=== PATIENT | male | born 1980 | race Caucasian/White ===

== ENCOUNTER 2023-01-17 13:19 | Outpatient (CLI) | payer OTHER, SELFPAY | END 2023-01-17 13:20 | disposition home or self-care (01) | PROVIDERS: PCP Family Medicine; Visit Provider Surgery | DX: K42.9 Umbilical hernia without obstruction or gangrene (principal); Z01.818 Encounter for other preprocedural examination | CPT/HCPCS: 36415; 86850; 86900; 86901 ==

== ENCOUNTER 2023-01-18 01:31 | Day surgery (SDC) | payer OTHER, SELFPAY ==
[2023-01-14 14:32] VITALS: BMI 31.0
--- NOTE | 2023-01-14 14:38 | PC.NURSE ---
Report to the Outpatient Waiting Room, entrance under the green pavilion located off [facility], at time 0800 on date 01/18/23. Planned Procedure Time: 1000. Time changes happen often and if your time is changed the preop area will call you the afternoon before. - You and your visitor will be asked to self-screen and do not enter if you have any COVID symptoms. - A mask is optional within the hospital at this time. Patients may have clear liquids (water, carbonated beverages, clear teas, apple juice) until 3 hours prior to surgery with a maximum of 20 ounces. - No food from midnight until time of surgery Take the following medications with a SIP of water the morning of surgery: FLUOXETINE, TRAMADOL & INHALER IF NEEDED DO NOT STOP ANY OF YOUR OTHER PRESCRIPTION MEDICATIONS PRIOR TO SURGERY?EXCEPT THE FOLLOWING Medications to discontinue per physician: IBUPROFEN Date to take last dose: PER DR. SCHAFFER Please no make-up, nail sao tomean, hairspray, perfume, deodorant, or body powder the day of surgery. No jewelry (including any body piercings) or valuables the day of surgery, leave them at home. Please take a shower or bath the night before, or the morning of, surgery with an antibacterial soap (HIBICLENS). Wear comfortable, loose fitting clothing. - Jewelry must be removed prior to entering the operating room. Rings and piercings that are not removed may be cut off. - The hospital will not accept responsibility for valuables. - Please leave all valuables, including medications, at home the day of surgery. If you are going home after surgery, a licensed hazmat tanker driver must drive you home. - NO public transportation without another adult if you receive anesthesia. - We recommend that an adult stay with you for 24 hours following discharge. - We also recommend that you do not drive, make important decision, drink alcoholic beverages, or take any drugs that were not prescribed by your health care provider for at least 24 hours after your discharge time. Follow any additional instructions given to you from your surgeon. If you or anyone in your household have experienced Covid symptoms in the past week, please notify your surgeon or the nurse liaison at the phone number below for possible testing. Telephone instructions given to PT - ARRON KARIMI and asked if any additional questions and then verbalized understanding. Patient advised to call surgeon office or pre surgery nurse liaison [phone] if any additional questions.
[2023-01-18] VITALS (9 sets, daily range): BP systolic 107–150; BP diastolic 51–97; PULSE 62–77; RESP 11–16; TEMP 36.3–36.8; O2SAT 91–100
--- NOTE | 2023-01-18 08:37 | WPDHPUPDATE1 ---
History and Physical Update Update Date/Time: 01/18/23 08:37 History and Physical has been reviewed, including an updated exam of the patient. There are NO changes in the patient's condition. Risks, benefits, and alternatives have been discussed and questions answered. Patient agrees to proceed with procedure.
--- NOTE | 2023-01-18 08:37 | PM.IMHP ---
H&P: HPI History of Present Illness Date/Time: 01/18/23 08:37 Chief Complaint: Umbilical hernia Narrative: This is a 42 year old man who presents for umbilical hernia repair. He denies any changes since last seen in the office. Review of Systems Review of Systems: All systems reviewed & are unremarkable except as noted in HPI and below Constitutional: Constitutional: Denies chills, Denies fever(s), Denies headache(s) and Denies weight loss Eyes: Eyes: Denies change in vision ENT: Denies dizziness, Denies headache(s), Denies neck mass and Denies throat swelling Cardiovascular: Cardiovascular: Denies chest pain, Denies lightheadedness and Denies dyspnea Respiratory: Respiratory: Denies cough, Denies dyspnea and Denies wheezing Gastrointestinal: Gastrointestinal: Denies abdominal pain, Denies change in bowel habits, Denies nausea and Denies vomiting Genitourinary: Genitourinary: Denies hematuria and Denies dysuria Musculoskeletal: Musculoskeletal: Reports as per HPI Integumentary/Breasts: Skin/Breast: Reports as per HPI Neurologic: Denies dizziness and Denies headache(s) Allergic/Immunologic: Allergic/Immunologic: Denies throat swelling and Denies wheezing [facility] Past Medical History Medical History (Updated 01/14/23 @ 14:40 by Pedro Craft MD) ADD (attention deficit disorder) Anxiety Eczema Plantar fasciitis, bilateral Surgical History Surgical History H/O inguinal hernia repair as a child History of ankle surgery History of nasal surgery History of vasectomy S/P repair of pectoralis muscle tear Family History Family History Father Family history of congestive heart failure Other Cerebrovascular accident Social History Social History Smoking packs per day: 0.5 Smoking cigarettes per day: 10.0 Years smoked: 10 Smoking pack-years: 5.00 Smoking status: Former smoker Tobacco type: cigarettes and smokeless tobacco Smokeless tobacco user: chewing tobacco Second hand tobacco smoke exposure: No Smoking end date: 10/10/08 Alcohol intake: current Drinks per week: 1 Alcohol use details: VERY RARE Substance use: never Substance use type: does not use Living arrangements: with family Occupation/Education: occupation 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 Gender identity (if verbalized by the patient): Male Spiritual care concerns: No Meds Home Medications and Allergies Home Medications Medication Instructions Recorded Confirmed Type albuterol sulfate 90 mcg/actuation 1 puff inhalation Q4H PRN 08/21/19 01/18/23 History aerosol inhaler (ProAir HFA) Bronchospasm ibuprofen 800 mg tablet See Rx Instructions .Route 10/22/21 01/18/23 Rx .COMPLEX #90 tabs dextroamphetamine-amphetamine 10 10 mg PO DAILY #30 tabs 12/08/22 01/18/23 Rx mg tablet (Adderall) fluoxetine 40 mg capsule 40 mg PO DAILY #90 caps 12/08/22 01/18/23 Rx triamcinolone acetonide 0.1 % 1 applic topical BID #80 grams 12/08/22 01/18/23 Rx topical cream tramadol 50 mg tablet 50 mg PO Q6H PRN pain #30 tabs 01/07/23 01/18/23 Rx Allergies Allergy/AdvReac Type Severity Reaction Status Date / Time No Known Allergies Allergy Verified 01/18/23 08:25 Exam Const: General: no acute distress and alert Orientation/consciousness: patient oriented x3 HENMT: Head: normocephalic and atraumatic Ears: hearing grossly normal bilaterally Face/Nose/Sinus: Normal nares present Mouth: Yes Normal oral and palatal mucosa present Eyes: Periorbital: periorbital findings normal Sclera: sclerae normal EOM: EOMs intact bilaterally Neck: Neck: normal visual inspection, no lymphadenopathy and trachea midline Chest: Chest palpation & inspection: normal inspection of the chest Resp: Effort & Inspection: normal res
[2023-01-18] MEDS: LACTATED RINGERS 1,000 ML 30 ML IV CONT ×2 (08:40→10:40)
--- NOTE | 2023-01-18 08:45 | WPDANESEPPF ---
Anes - Initial Pre Proc Eval Procedure: Operation Date: 01/18/23 10:00 Proposed Procedures p Laparoscopic Umbilical Hernia Repair with Mesh, DaVinci Assisted - Tiago Caal DO Date/Time: 01/18/23 08:45 Surgeon: Tiago Caal DO Pre Op Diagnosis: Umb Hernia Patient Data Age: 42 Gender: M Height: 1.93 m Weight: 117.2 kg Allergies Allergy/AdvReac Type Severity Reaction Status Date / Time No Known Allergies Allergy Verified 01/18/23 08:25 Home Medications Medication Instructions Recorded Confirmed Type albuterol sulfate 90 mcg/actuation 1 puff inhalation Q4H PRN 08/21/19 01/18/23 History aerosol inhaler (ProAir HFA) Bronchospasm ibuprofen 800 mg tablet See Rx Instructions .Route 10/22/21 01/18/23 Rx .COMPLEX #90 tabs dextroamphetamine-amphetamine 10 10 mg PO DAILY #30 tabs 12/08/22 01/18/23 Rx mg tablet (Adderall) fluoxetine 40 mg capsule 40 mg PO DAILY #90 caps 12/08/22 01/18/23 Rx triamcinolone acetonide 0.1 % 1 applic topical BID #80 grams 12/08/22 01/18/23 Rx topical cream tramadol 50 mg tablet 50 mg PO Q6H PRN pain #30 tabs 01/07/23 01/18/23 Rx Patient hx anesthesia problems: none Family hx anesthesia problems: none Results Review: All pre-operative results and documents have been reviewed as part of the pre-operative evaluation. [facility] Past Medical History Medical History ADD (attention deficit disorder) Anxiety Eczema Plantar fasciitis, bilateral Surgical History Surgical History H/O inguinal hernia repair as a child History of ankle surgery History of nasal surgery History of vasectomy S/P repair of pectoralis muscle tear Family History Family History Father Family history of congestive heart failure Other Cerebrovascular accident Social History Social History Smoking packs per day: 0.5 Smoking cigarettes per day: 10.0 Years smoked: 10 Smoking pack-years: 5.00 Smoking status: Former smoker Tobacco type: cigarettes and smokeless tobacco Smokeless tobacco user: chewing tobacco Second hand tobacco smoke exposure: No Smoking end date: 10/10/08 Alcohol intake: current Drinks per week: 1 Alcohol use details: VERY RARE Substance use: never Substance use type: does not use Living arrangements: with family Occupation/Education: occupation 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 Informed Consent: The patient's anesthetic plan and its attendant risks and benefits were discussed with the patient/family/POA. Questions were solicited and answers provided to the satisfaction of the patient/family/POA.
[2023-01-18] MEDS: ACETAMINOPHEN 500 MG TABLET 1000 MG PO (08:57)
[2023-01-18] MEDS: KETOROLAC 15 MG/ML VIAL (*BKC) IV PUSH (08:57)
[2023-01-18] MEDS: ceFAZolin 2 GM/D5W 50 ML 2 GM/50 ML BAG IVPB (09:03)
[2023-01-18] MEDS: BUPIVACAINE/EPINEPHRINE 0.5% 50 ML VIAL INFILTRATE (09:36)
--- NOTE | 2023-01-18 10:36 | W.PM.PROC2 ---
Procedure Note - Detailed Date of Procedure 01/18/23 Pre-op Diagnosis Umbilical hernia Post-op Diagnosis Same (2 cm) Procedure Performed Laparoscopic 2cm Umbilical Hernia Repair with Mesh, da Samantha assisted Surgeon Tiago Caal, DO Anesthesia General and Local (0.5% bupivacaine with epinephrine) Indications This is a 42-year-old man who presented with an umbilical bulge that he noticed about 6 or 8 months ago. It is reducible and has some slight discomfort, but patient does feel it is also increased in size. He was found to have a reducible hernia on exam. Discussions were made with the patient about treatment options and decision was made to proceed robotic assisted laparoscopic umbilical hernia repair with mesh. Findings Laparoscopic umbilical hernia repair was performed. A robotic transabdominal preperitoneal approach was utilized. The patient was found to have a 2 cm umbilical hernia containing preperitoneal. Was somewhat enough preperitoneal pocket was created in the hernia sac was reduced along with preperitoneal fat, then repaired hernia using 0 Stratafix running absorbable suture. 15 cm x 10 cm Bard soft mesh was placed within the preperitoneal pocket and secured to the abdominal wall using 3-0 Vicryl simple interrupted sutures. No specimens were obtained for pathology. Description of Procedure Procedure as well as risks, benefits, and alternatives were discussed with the patient. Written consent was obtained and placed in chart prior to procedure. Patient was brought back to surgical suite. He was placed supine on operating table. Time-out was done to confirm patient and procedure. He was then intubated by the anesthesia department. A bump was placed under his left hip, and the bed was flexed slightly to extend the space between his costal margin and iliac crest. His abdomen was prepped and draped in sterile fashion using chlorhexidine prep. A 5 millimeter incision was made in the left upper quadrant, and a 5 millimeter Optiview trocar was advanced through the abdominal layers under direct visualization. Once inside the abdominal cavity, carbon dioxide insufflation was used to create a pneumoperitoneum. His abdomen was inspected. An 8 millimeter incision was made in the left lower quadrant, and an 8 millimeter robotic trocar was placed under direct visualization. Another 8 millimeter incision was made in the left lateral abdomen, and an 8 millimeter robotic trocar was placed under direct visualization. Bupivacaine was infiltrated along the lateral abdominal ha to perform a transversus abdominis plane block bilaterally. The 5 millimeter port was removed, and an 8 millimeter port was placed under direct visualization. The robotic arms were brought up to the patient's bedside and secured to the ports. The camera and instruments were inserted, and I then moved over to the robotic console and took control of the camera and instruments. After careful thorough inspection of the abdominal cavity, I began my dissection at the hernia. A preperitoneal plane was developed starting along the left lateral abdomen and extending to the midline. The hernia sac was reduced and then the preperitoneal plane was continued to the right lateral abdomen. I then measured the hernia size. The hernia measured 2 cm. The fascia was closed using an 0-Stratafix running suture in a vertical fashion. A 15 cm x 10 cm Bard soft mesh was then placed within the preperitoneal pocket. This was oriented vertically with the mesh centered on the hernia defect. The mesh was then secured to the abdominal wall using 3-0 Vicryl simple interrupted sutures at the 4 corners and center of the mesh. The peritoneum was then closed over the mesh using 3 0 V lock running absorbable suture. The repair was inspected, and one final inspection was made around the abdominal cavity. The robotic instruments were then removed, and the robotic arms were disengaged from the trocars. The p
--- NOTE | 2023-01-18 11:01 | SUR.PHASEI ---
1100: Simple mask removed.
[2023-01-18] MEDS: fentaNYL CITRATE INJ (*CRX) 100 MCG/2 ML VIAL 25 MCG IV PUSH ×3 (11:04→11:57)
[2023-01-18] MEDS: oxyCODONE HCL (*CRX) 5 MG TAB IR PO (12:01)
== END 2023-01-18 12:55 | disposition home or self-care (01) ==
PROVIDERS: PCP Family Medicine; Visit Provider Surgery
PROC: (CPT 49591; principal; 2023-01-18 10:00)
DX: K42.9 Umbilical hernia without obstruction or gangrene (principal); F98.8 Other specified behavioral and emotional disorders with onset usually occurring in childhood and adolescence; F41.9 Anxiety disorder, unspecified; L30.9 Dermatitis, unspecified; Z79.51 Long term (current) use of inhaled steroids; E66.9 Obesity, unspecified; Z68.31 Body mass index [BMI] 31.0-31.9, adult; Z87.891 Personal history of nicotine dependence
CPT/HCPCS: 49591; S2900; A9270; C1781; C9290; J0690; J1885; J2250; J2405; J2704; J2710; J3010; J7120

== ENCOUNTER 2023-02-18 13:11 | Outpatient (CLI) | payer OTHER, SELFPAY ==
--- NOTE | ~2023-02-18 | XR_ITS ---
XR cervical spine min 6V 02/18/2023 13:39 Indication: Left neck pain Procedure: 6 views cervical spine Comparison: No prior studies for comparison. Findings: Vertebral body heights are maintained. Normal cervical lordosis. There is mild disc height loss and degenerative change at C6-7. No significant alteration of alignment with flexion/extension. Lung apices are normal. Odontoid process is normal. Lateral masses normally aligned. There is mild un cinate degenerative change at multiple levels. Impression: 1: Mild cervical spondylosis. Reviewed, dictated and finalized at location B. Impression: 1: Mild cervical spondylosis.
--- NOTE | ~2023-02-18 | XR_ITS ---
XR lumbar spine min 4V 02/18/2023 13:39 Indication: Low back pain Procedure: 5 views of the lumbar spine Comparison: No prior studies for comparison. Findings: Vertebral body heights are maintained. There is disc narrowing at L5-S1. There is no acute fracture, subluxation or spondylolisthesis. There is mild lower lumbar facet hypertrophy. Impression: 1: Mild lumbar spondylosis. Reviewed, dictated and finalized at location B. Impression: 1: Mild lumbar spondylosis.
== END 2023-02-18 13:12 | disposition home or self-care (01) ==
LOC: ANHIMG 13:21
PROVIDERS: PCP Family Medicine; Visit Provider Physician Assistant
DX: R42 Dizziness and giddiness (principal); R51.9 Headache, unspecified; H53.2 Diplopia; M47.896 Other spondylosis, lumbar region; M47.892 Other spondylosis, cervical region
CPT/HCPCS: 72052; 72110

== ENCOUNTER 2025-02-11 09:30 | Outpatient (CLI) | payer OTHER, SELFPAY ==
--- NOTE | ~2025-02-11 | CT_ITS ---
EXAMINATION: CT abdomen pelvis wo/w con DATE: 02/11/2025 10:14 INDICATION: Microscopic hematuria TECHNIQUE: Computed tomography (CT) of the abdomen and pelvis was performed without intravenous contr ast. CT of the abdomen and pelvis was then performed with a total of 130 mL Omnipaque-350 intravenous contrast using a double-bolus technique for simultaneous opacification of the renal parenchyma and r enal collecting system. Automated exposure control and iterative reconstruction technique were employ ed. The dose-length product was 2760.31 mGy-cm. COMPARISON: None FINDINGS: Pneumatocele at the posterior basilar right lower lobe. Heart size is normal. No pericardial or pleur al effusion. Mild bilateral gynecomastia. Small sliding-type hiatal hernia. Liver, gallbladder, splee n, pancreas, bilateral adrenal glands are normal. 2.8 cm right renal cyst. 2 mm nonobstructing stone at the upper pole calyx of the right kidney. No other urolithiasis or hydronephrosis. Small segments of the distal ureters are decompressed and remaining unopacified with contrast. No filling defects or urothelial irregularities along the contrast opacified portion of the bilateral ureters or in the bi lateral renal collecting systems. Bladder and prostate are normal. Small bilateral fat-containing her nias. There is moderate colonic diverticulosis with a sigmoid and descending colon predominance but w ithout adjacent inflammatory change to suggest diverticulitis. Small bowel and appendix are normal. No free intraperitoneal gas or fluid. No pathologically enlarged abdominal or pelvic lymphadenopathy . Severe disc height loss at L5-S1. Otherwise minimal lumbar and lower thoracic spondylosis. IMPRESSION: 1. 2 mm nonobstructing left renal stone. 2. Small sliding-type hiatal hernia. 3. Small bilateral fat-containing inguinal hernias. Reviewed, dictated and finalized at location A.
== END 2025-02-11 09:31 | disposition home or self-care (01) ==
PROVIDERS: PCP Family Medicine; Visit Provider Urology
DX: R31.29 Other microscopic hematuria (principal); K44.9 Diaphragmatic hernia without obstruction or gangrene; K40.20 Bilateral inguinal hernia, without obstruction or gangrene, not specified as recurrent; N20.0 Calculus of kidney
CPT/HCPCS: 74178; Q9967

== ENCOUNTER 2025-03-08 01:12 | Day surgery (SDC) | payer OTHER, SELFPAY ==
[2025-03-01 14:07] VITALS: BMI 31.0
--- NOTE | 2025-03-08 07:16 | WPDANESEPPF ---
Anes - Initial Pre Proc Eval Procedure: Operation Date: 03/08/25 10:00 Proposed Procedures p Screening Colonoscopy - Asif Rojas MD Date/Time: 03/08/25 07:16 Surgeon: Asif Rojas MD Pre Op Diagnosis: Encounter for screening for malignant neoplasm of Patient Data Age: 45 Gender: M Height: 1.93 m Weight: 115.7 kg Allergies Allergy/AdvReac Type Severity Reaction Status Date / Time No Known Allergies Allergy Verified 03/08/25 08:35 Home Medications ?Medication ?Instructions ?Recorded ?Confirmed ?Type albuterol sulfate 90 mcg/actuation 1 puff inhalation Q4H PRN 08/21/19 03/01/25 History aerosol inhaler (ProAir HFA) Bronchospasm triamcinolone acetonide 0.1 % 1 applic topical BID #80 grams 12/08/22 03/01/25 Rx topical cream ibuprofen 800 mg tablet See Rx Instructions .Route 09/03/24 03/01/25 Rx .COMPLEX #90 tabs testosterone cypionate 200 mg/mL 100 mg (0.5 mL) IM WEEKLY #10 mL 11/09/24 03/01/25 Rx intramuscular oil alprazolam 0.25 mg tablet (Xanax) 0.25 mg PO BID PRN anxiety #6 tabs 01/14/25 03/01/25 Rx escitalopram oxalate 10 mg tablet 10 mg PO DAILY #30 tabs 02/28/25 03/01/25 Rx dextroamphetamine-amphetamine 10 10 mg PO DAILY #30 tabs 03/01/25 03/01/25 Rx mg tablet (Adderall) Patient hx anesthesia problems: none Family hx anesthesia problems: none Results Review: All pre-operative results and documents have been reviewed as part of the pre-operative evaluation. [facility] Past Medical History Medical History ADD (attention deficit disorder) Eczema Plantar fasciitis, bilateral Anxiety Surgical History Surgical History Hx of umbilical hernia repair Lap umb hernia repair with mesh da ralph assisted on 01/18/23. H/O inguinal hernia repair as a child S/P repair of pectoralis muscle tear History of nasal surgery History of ankle surgery History of vasectomy Family History Family History Father Family history of congestive heart failure Other Cerebrovascular accident Social History Social History Smoking packs per day: 0.5 Smoking cigarettes per day: 10.0 Years smoked: 10 Smoking pack-years: 5.00 Smoking status: Former smoker Tobacco type: cigarettes and smokeless tobacco Smokeless tobacco user: chewing tobacco Second hand tobacco smoke exposure: No Smoking end date: 10/10/08 Alcohol intake: current Drinks per week: 1 Alcohol use details: VERY RARE Substance use: never Substance use type: does not use Living arrangements: with family Additional living arrangements comments: with sp Occupation/Education: occupation 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 Informed Consent: The patient's anesthetic plan and its attendant risks and benefits were discussed with the patient/family/POA. Questions were solicited and answers provided to the satisfaction of the patient/family/POA.
[2025-03-08 08:38] VITALS: BP 138/84; PULSE 82; RESP 16; TEMP 36.7; O2SAT 99
[2025-03-08] MEDS: LACTATED RINGERS 1,000 ML 150 ML IV CONT (08:47)
--- NOTE | 2025-03-08 09:12 | P.HP_ITS ---
History of Present Illness History of Present Illness Consent: Risks, benefits, and alternatives have been discussed and questions answered. Patient agrees to proceed with procedure. Chief complaint: Encounter for screening for malignant neoplasm of Narrative: Wei Travis is a 45 year old male here for first screening colonoscopy Review of Systems Review of Systems: All systems reviewed & are unremarkable except as noted in HPI and below PMFSH Past Medical History Medical History (Updated 03/08/25 @ 09:12 by Asif Rojas MD) Colon cancer screening ADD (attention deficit disorder) Eczema Plantar fasciitis, bilateral Anxiety Surgical History Surgical History Hx of umbilical hernia repair Lap umb hernia repair with mesh da ralph assisted on 01/18/23. H/O inguinal hernia repair as a child S/P repair of pectoralis muscle tear History of nasal surgery History of ankle surgery History of vasectomy Family History Family History Father Family history of congestive heart failure Other Cerebrovascular accident Social History Social History Smoking packs per day: 0.5 Smoking cigarettes per day: 10.0 Years smoked: 10 Smoking pack-years: 5.00 Smoking status: Former smoker Tobacco type: cigarettes and smokeless tobacco Smokeless tobacco user: chewing tobacco Second hand tobacco smoke exposure: No Smoking end date: 10/10/08 Alcohol intake: current Drinks per week: 1 Alcohol use details: VERY RARE Substance use: never Substance use type: does not use Living arrangements: with family Additional living arrangements comments: with sp Occupation/Education: occupation 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 Gender identity (if verbalized by the patient): Male Spiritual care concerns: No Meds Home Medications and Allergies Home Medications ?Medication ?Instructions ?Recorded ?Confirmed ?Type albuterol sulfate 90 mcg/actuation 1 puff inhalation Q4H PRN 08/21/19 03/01/25 History aerosol inhaler (ProAir HFA) Bronchospasm triamcinolone acetonide 0.1 % 1 applic topical BID #80 grams 12/08/22 03/01/25 Rx topical cream ibuprofen 800 mg tablet See Rx Instructions .Route 09/03/24 03/08/25 Rx .COMPLEX #90 tabs testosterone cypionate 200 mg/mL 100 mg (0.5 mL) IM WEEKLY #10 mL 11/09/24 03/08/25 Rx intramuscular oil alprazolam 0.25 mg tablet (Xanax) 0.25 mg PO BID PRN anxiety #6 tabs 01/14/25 03/01/25 Rx escitalopram oxalate 10 mg tablet 10 mg PO DAILY #30 tabs 02/28/25 03/08/25 Rx dextroamphetamine-amphetamine 10 10 mg PO DAILY #30 tabs 03/01/25 03/08/25 Rx mg tablet (Adderall) Allergies Allergy/AdvReac Type Severity Reaction Status Date / Time No Known Allergies Allergy Verified 03/08/25 08:35 Vital Signs Vital Signs - 24 hr 03/08/25 08:38 Temperature 98.0 F Pulse Rate 82 Respiratory Rate 16 Blood Pressure 138/84 Pulse Oximetry 99 Oxygen Delivery Room Air Exam Const: General: comfortable and no acute distress HENMT: Face/Nose/Sinus: Normal nares present Eyes: General: appearance normal, both eyes and all related structures Neck: Neck: no JVD Resp: Auscultation: clear to auscultation bilaterally Cardio: Rate: regular rate Rhythm: regular rhythm GI: Inspection: non-distended GI Palp: Yes Soft to palpation Skin: General skin exam: normal color Neuro: General: gait normal Speech: normal speech Extrem: General: normal to inspection Psych: Mental Status: mental status grossly normal Assessment and Plan Assessment and plan (1) Colon cancer screening: Code(s): Z12.11 - Encounter for screening for malignant neoplasm of colon Status: Acute Assessment and Plan: colonoscopy
[2025-03-08 09:25] VITALS: BP 107/55; PULSE 84; RESP 23; O2SAT 97
[2025-03-08 09:35] VITALS: BP 100/62; PULSE 78; RESP 22; O2SAT 96
[2025-03-08 09:45] VITALS: BP 111/76; PULSE 73; RESP 15; O2SAT 96
== END 2025-03-08 09:53 | disposition home or self-care (01) ==
PROVIDERS: PCP Family Medicine; Visit Provider Internal Medicine Gastroenterology
PROC: 0DJD8ZZ Inspection of Lower Intestinal Tract, Via Natural or Artificial Opening Endoscopic (ICD-10-PCS; CPT 45378; principal; 2025-03-08 10:00)
DX: Z12.11 Encounter for screening for malignant neoplasm of colon (principal); K57.30 Diverticulosis of large intestine without perforation or abscess without bleeding; K64.8 Other hemorrhoids; F17.220 Nicotine dependence, chewing tobacco, uncomplicated; E66.9 Obesity, unspecified; Z68.30 Body mass index [BMI] 30.0-30.9, adult
CPT/HCPCS: 45378; J2704; J7120